=== PATIENT | male | born 1990 | race Caucasian/White ===

== ENCOUNTER 2020-11-19 19:00 | Inpatient (IN) | payer OTHER, MEDICAID ==
[~2020-11-19] VITALS: Ht 177.8 cm; Wt 64.6 kg
[2020-11-19 19:42] LABS: Urine Bacteria NONE SEEN /hpf (None Seen); Urine Blood 1+ /uL (Negative); Urine Specific Gravity 1.022 (1.001-1.035); Urine WBC 1 /hpf (0 - 3)
[2020-11-19 20:02] LABS: Amphetamine Screen, Urine NEGATIVE (NEGATIVE); Barbiturate Scree,Urine NEGATIVE (NEGATIVE); Benzodiazephine Screen, Urine NEGATIVE (NEGATIVE); Cannabinoid Screen, Urine NEGATIVE (NEGATIVE); Cocaine Screen, Urine NEGATIVE (NEGATIVE); Opiate Scree,Urine NEGATIVE (NEGATIVE); Phencyclidine Screen, Urine NEGATIVE (NEGATIVE)
[2020-11-19 20:30] LABS: Hematocrit 46.7 % (41.0-53.0); Mean Corpuscular Hemoglobin 30.3 pg (28.0-32.0); Mean Corpuscular Hgb Conc. 32.1 g/dL (32.0-36.0); Mean Corpuscular Volume 94.3 fL (80.0-100.0); Red Blood Cells 4.96 10^6/uL (4.5-5.90); Red Cell Distribution Width 12.6 % (11.8-14.3); White Blood Cell 27.5 10^3/uL (4.4-10.8)
[2020-11-19 20:39] LABS: Basophils % (manual) 0 (0.0-2.0); Blast Cells 0; Eosinophils % (manual) 0 (0-7); Metamyelocytes % 0; Myelocytes % 0; Promyelocytes % 0; Reactive Lymphocytes 0
[2020-11-19 20:49] LABS: Albumin 4.4 g/dL (3.4-5.0); Calcium 8.3 mg/dL (8.5-10.1); Magnesium 3.3 mg/dL (1.6-2.6); Potassium 5.5 mmol/L (3.5-5.1)
[2020-11-19 20:58] LABS: BUN/Creatinine Ratio 22.5; Bilirubin, Total 0.8 mg/dL (0.2-1.0); Total Protein 8.1 g/dL (6.4-8.2)
[2020-11-19 21:20] LABS: Band Neutrophils % (manual) 4; Lymphocytes % (manual) 9 (10.0-50.0); Monocytes % (manual) 4 (0-12)
[2020-11-19] MEDS ORDERED: SODIUM CHLORIDE 0.9% 1,000 ML IV ONE (21:30)
[2020-11-19] MEDS ORDERED: InsuLIN REG 1unit/0.01ml Soln (100units/ml) IV ONE (21:30)
[2020-11-19] MEDS ORDERED: SODIUM CHLORIDE 0.9% 3,000 ML IV ONE (21:30)
[2020-11-19] MEDS ORDERED: DEXTROSE (50%) 50ML SYRG IV PRN (22:00)
[2020-11-19] MEDS ORDERED: SODIUM BICARBONATE 8.4 % INJ 50ML VIAL IV ONE (22:00)
[2020-11-19] MEDS ORDERED: cefTRIAXone SOD 1,000 MG VL IM ONE (22:00)
[2020-11-19] MEDS ORDERED: ACETAMINOPHEN 325 MG TAB PO PRN (22:30)
[2020-11-19] MEDS ORDERED: ONDANSETRON HCL 4 MG/2 ML VIAL IV PRN (22:30)
[2020-11-19] MEDS ORDERED: DOCUSATE SOD 100 MG CAP PO PRN (22:30)
[2020-11-19] MEDS ORDERED: HYDROcodone-ACET 5/325MG TAB PO PRN (22:30)
[2020-11-19] MEDS: ACCU-CHEK COMFORT CURVE STRIP VI SCH (22:39)
[2020-11-19] MEDS: InsuLIN R (HUMAN) 100 UNITS in SODIUM CHL 0.9% 99 ML IV SCH (22:45)
[2020-11-19] MEDS ORDERED: IOHEXOL 300 MG/ML 100ML BOTTLE IJ ONE (23:55)
[2020-11-20] MEDS: ACCU-CHEK COMFORT CURVE STRIP VI SCH ×12 (00:30→20:00)
[2020-11-20 01:36] LABS: Albumin 3.2 g/dL (3.4-5.0); Anion Gap 21 (5-15); Blood Urea Nitrogen 40 mg/dL (7-18); Carbon Dioxide 11 mmol/L (21-32); Chloride 116 mmol/L (98-107); Magnesium 2.9 mg/dL (1.6-2.6); Potassium 3.3 mmol/L (3.5-5.1); Sodium 148 mmol/L (136-145)
[2020-11-20 01:38] LABS: BUN/Creatinine Ratio 22.5; GFR African American 59 mL/min; GFR Non-African American 49 mL/min
[2020-11-20 01:41] LABS: Alanine Aminotransferase 33 U/L (16-61); Alkaline Phosphatase 73 U/L (45-117); Aspartate Aminotransferase 24 U/L (15-37); Bilirubin, Total 0.5 mg/dL (0.2-1.0); Total Protein 5.9 g/dL (6.4-8.2)
[2020-11-20 01:59] LABS: Glucose 465 mg/dL (74-106)
[2020-11-20] MEDS ORDERED: SODIUM CHLORIDE 0.9% 1,000 ML IV SCH (02:00)
[2020-11-20] MEDS ORDERED: NITROGLYCERIN 0.4 MG SL TAB SL PRN (02:30)
[2020-11-20] MEDS ORDERED: CALCIUM CHL 100MG/ML 500 MG in D5W 5% 100 ML IV ONE (02:30)
[2020-11-20] MEDS ORDERED: POTASSIUM CHL 20 Meq TABLET PO ONE (02:30)
[2020-11-20] MEDS ORDERED: MORPHINE SULF INJ 2 MG/ML SYRINGE 1ML IV PRN (02:30)
[2020-11-20 02:32] LABS: Basophils # (auto) 0 10 ^3/uL (0-0.2); Eosinophils # (auto) 0 10 ^3/uL (0-0.8); Eosinophils % (auto) 0.2 % (0.0-7.0); Hematocrit 36.8 % (41.0-53.0); Lymphocytes # (auto) 0.8 10 ^3/uL (0.4-5.4); Lymphocytes % (auto) 4.3 % (10.0-50.0); Mean Corpuscular Hemoglobin 30.9 pg (28.0-32.0); Mean Corpuscular Hgb Conc. 35.4 g/dL (32.0-36.0); Mean Corpuscular Volume 87.3 fL (80.0-100.0); Monocytes # (auto) 2.8 10 ^3/uL (0-1.3); Monocytes % (auto) 15.2 % (0.0-12.0); Neutrophils # (auto) 14.5 10 ^3/uL (1.6-8.6); Neutrophils % (auto) 80.3 % (37.0-80.0); Red Blood Cells 4.22 10^6/uL (4.5-5.90); Red Cell Distribution Width 12.5 % (11.8-14.3); White Blood Cell 18.1 10^3/uL (4.4-10.8)
[2020-11-20 02:51] LABS: Cholesterol 178 mg/dL (< 200); HDL Cholesterol 29 mg/dL (40-59); Triglycerides 462 mg/dL (< 150)
[2020-11-20] MEDS ORDERED: CALCIUM CHLOR(10%) 100MG/ML 10ML SYRINGE IV ONE (04:12)
[2020-11-20 05:14] LABS: Basophils # (auto) 0 10 ^3/uL (0-0.2); Basophils % (auto) 0.1 % (0.0-2.0); Eosinophils # (auto) 0 10 ^3/uL (0-0.8); Hemoglobin 13.1 g/dL (13.5-17.5); Lymphocytes # (auto) 0.6 10 ^3/uL (0.4-5.4); Lymphocytes % (auto) 3.5 % (10.0-50.0); Mean Corpuscular Hemoglobin 30.4 pg (28.0-32.0); Mean Corpuscular Hgb Conc. 35.4 g/dL (32.0-36.0); Monocytes # (auto) 2.1 10 ^3/uL (0-1.3); Monocytes % (auto) 12.3 % (0.0-12.0); Neutrophils # (auto) 14.1 10 ^3/uL (1.6-8.6); Neutrophils % (auto) 84.1 % (37.0-80.0); Red Cell Distribution Width 12.1 % (11.8-14.3); White Blood Cell 16.7 10^3/uL (4.4-10.8)
[2020-11-20 05:16] LABS: Albumin 3.5 g/dL (3.4-5.0); BUN/Creatinine Ratio 19.2; Calcium 8.5 mg/dL (8.5-10.1); Magnesium 2.5 mg/dL (1.6-2.6); Potassium 3.4 mmol/L (3.5-5.1)
[2020-11-20 05:18] LABS: Bilirubin, Total 0.6 mg/dL (0.2-1.0); Total Protein 6.6 g/dL (6.4-8.2)
[2020-11-20] MEDS ORDERED: cefTRIAXone 1GM/50ML D5W 50 ML IV SCH (09:00)
[2020-11-20] MEDS: INSULIN LANTUS (GLARGINE) 1 /0.01ml (100units/ml) SC SCH ×2 (09:54→22:45)
[2020-11-20] MEDS: InsuLIN R (HUMAN) 100 UNITS in SODIUM CHL 0.9% 99 ML IV SCH (09:54)
[2020-11-20] MEDS ORDERED: ZINC SULFATE 220mg CAP or TAB PO SCH (10:00)
[2020-11-20] MEDS ORDERED: ASCORBIC ACID 500 MG TAB PO SCH (10:00)
[2020-11-20] MEDS ORDERED: MULTIPLE VITAMIN TAB PO SCH (10:00)
[2020-11-20] MEDS: HEPARIN SODIUM (PORCINE) 5000 UNITS/ML 1ML VIAL SC SCH ×2 (10:14→22:45)
[2020-11-20] MEDS: SOD CHL 0.45% 1,000 ML IV SCH ×5 (11:02→23:24)
[2020-11-20 11:19] LABS: Albumin 3.4 g/dL (3.4-5.0); Calcium 8.5 mg/dL (8.5-10.1); Magnesium 2.6 mg/dL (1.6-2.6); Potassium 4.1 mmol/L (3.5-5.1)
[2020-11-20 11:24] LABS: BUN/Creatinine Ratio 23.1; Bilirubin, Total 0.6 mg/dL (0.2-1.0); Phosphorus 1.6 mg/dL (2.5-4.90); Total Protein 6.5 g/dL (6.4-8.2)
[2020-11-20] MEDS ORDERED: metroNIDAZOLE 500MG/100ML 100 ML IV SCH (14:00)
[2020-11-20 15:41] LABS: Calcium 8.6 mg/dL (8.5-10.1)
[2020-11-20] MEDS ORDERED: DEXTROSE (50%) 50ML SYRG IV PRN (16:30)
[2020-11-20] MEDS: PIPERACILLIN-TAZOB 3.375GM 100 ML IV SCH ×2 (18:26→22:30)
[2020-11-20] MEDS: InsuLIN REG 1unit/0.01ml Soln (100units/ml) SC SCH (21:30)
[2020-11-20 21:57] LABS: BUN/Creatinine Ratio 21.4; Calcium 9.1 mg/dL (8.5-10.1); Potassium 4.1 mmol/L (3.5-5.1)
[2020-11-20] MEDS: PANTOPRAZOLE 40 MG/10 ML VIAL INJ IV SCH (22:45)
[2020-11-21] VITALS (17 sets, daily range): BP systolic 91–110; BP diastolic 55–71
[2020-11-21] MEDS: PIPERACILLIN-TAZOB 3.375GM 100 ML IV SCH ×3 (03:13→18:42)
[2020-11-21 03:50] LABS: Potassium 3.6 mmol/L (3.5-5.1)
[2020-11-21 03:52] LABS: BUN/Creatinine Ratio 19.8
[2020-11-21] MEDS: ACCU-CHEK COMFORT CURVE STRIP VI SCH ×6 (04:00→20:10)
[2020-11-21] MEDS: InsuLIN REG 1unit/0.01ml Soln (100units/ml) SC SCH ×6 (04:00→20:43)
[2020-11-21] MEDS: INSULIN LANTUS (GLARGINE) 1 /0.01ml (100units/ml) SC SCH (07:00)
[2020-11-21] MEDS: SOD CHL 0.45% 1,000 ML IV SCH (07:37)
[2020-11-21] MEDS ORDERED: INSU1INJ19 SC (08:09)
[2020-11-21] MEDS ORDERED: INSU100I44 SC (08:09)
[2020-11-21] MEDS ORDERED: POTASSIUM PHOSPHATE 22 MEQ in SODIUM CHL 0.9% 100 ML IV ONE (08:15)
[2020-11-21 08:27] LABS: Basophils # (auto) 0 10 ^3/uL (0-0.2); Basophils % (auto) 0.2 % (0.0-2.0); Eosinophils # (auto) 0 10 ^3/uL (0-0.8); Hematocrit 38.4 % (41.0-53.0); Hemoglobin 13.5 g/dL (13.5-17.5); Lymphocytes # (auto) 0.8 10 ^3/uL (0.4-5.4); Lymphocytes % (auto) 6.5 % (10.0-50.0); Mean Corpuscular Hemoglobin 30.6 pg (28.0-32.0); Mean Corpuscular Hgb Conc. 35.2 g/dL (32.0-36.0); Mean Corpuscular Volume 86.9 fL (80.0-100.0); Monocytes # (auto) 1.2 10 ^3/uL (0-1.3); Monocytes % (auto) 10.3 % (0.0-12.0); Neutrophils # (auto) 9.9 10 ^3/uL (1.6-8.6); Red Blood Cells 4.42 10^6/uL (4.5-5.90); Red Cell Distribution Width 12.8 % (11.8-14.3)
[2020-11-21 08:41] LABS: Albumin 3.5 g/dL (3.4-5.0); Magnesium 2.6 mg/dL (1.6-2.6); Potassium 3.5 mmol/L (3.5-5.1)
[2020-11-21 08:43] LABS: BUN/Creatinine Ratio 18.3; Bilirubin, Total 1.2 mg/dL (0.2-1.0); Phosphorus 1.9 mg/dL (2.5-4.90); Total Protein 6.8 g/dL (6.4-8.2)
[2020-11-21] MEDS: PANTOPRAZOLE 40 MG/10 ML VIAL INJ IV SCH ×2 (09:57→22:25)
[2020-11-21] MEDS: D5W/SOD CHL 0.2% 1,000 ML IV SCH ×2 (09:57→16:15)
[2020-11-21] MEDS: HEPARIN SODIUM (PORCINE) 5000 UNITS/ML 1ML VIAL SC SCH ×2 (10:45→22:00)
[2020-11-21 11:07] LABS: Urine Amorphous Crystal MANY /hpf (None Seen); Urine Bacteria NONE SEEN /hpf (None Seen); Urine Blood 2+ /uL (Negative); Urine Specific Gravity 1.031 (1.001-1.035); Urine WBC 10 /hpf (0 - 3)
[2020-11-21 11:20] LABS: INR 1.02 (0.9-1.15); Partial Thromboplastin Time 22.8 sec (23.0-31.2)
[2020-11-21] MEDS ORDERED: GASTROGRAFIN 120 ML SOL ONE (13:26)
[2020-11-21] MEDS ORDERED: GASTROGRAFIN 30 ML SOL ONE (13:46)
[2020-11-22] VITALS (19 sets, daily range): BP systolic 97–117; BP diastolic 61–78
[2020-11-22] MEDS: D5W/SOD CHL 0.2% 1,000 ML IV SCH ×2 (00:15→08:15)
[2020-11-22] MEDS: ACCU-CHEK COMFORT CURVE STRIP VI SCH ×5 (04:16→18:15)
[2020-11-22] MEDS: InsuLIN REG 1unit/0.01ml Soln (100units/ml) SC SCH ×5 (04:17→18:15)
[2020-11-22] MEDS: PIPERACILLIN-TAZOB 3.375GM 100 ML IV SCH ×2 (06:00)
[2020-11-22 10:17] LABS: Basophils # (auto) 0 10 ^3/uL (0-0.2); Basophils % (auto) 0.3 % (0.0-2.0); Eosinophils # (auto) 0 10 ^3/uL (0-0.8); Eosinophils % (auto) 0.2 % (0.0-7.0); Hematocrit 38.8 % (41.0-53.0); Hemoglobin 13.6 g/dL (13.5-17.5); Lymphocytes # (auto) 0.9 10 ^3/uL (0.4-5.4); Lymphocytes % (auto) 14.7 % (10.0-50.0); Mean Corpuscular Hemoglobin 30.8 pg (28.0-32.0); Monocytes # (auto) 0.6 10 ^3/uL (0-1.3); Monocytes % (auto) 9.5 % (0.0-12.0); Neutrophils # (auto) 4.7 10 ^3/uL (1.6-8.6); Neutrophils % (auto) 75.3 % (37.0-80.0); Red Blood Cells 4.41 10^6/uL (4.5-5.90); Red Cell Distribution Width 12.5 % (11.8-14.3); White Blood Cell 6.2 10^3/uL (4.4-10.8)
[2020-11-22] MEDS: PANTOPRAZOLE 40 MG/10 ML VIAL INJ IV SCH (10:22)
[2020-11-22 10:37] LABS: Potassium 3.1 mmol/L (3.5-5.1)
[2020-11-22 10:47] LABS: Albumin 3.1 g/dL (3.4-5.0); BUN/Creatinine Ratio 27.4; Bilirubin, Total 1.4 mg/dL (0.2-1.0); Calcium 8.7 mg/dL (8.5-10.1); Total Protein 6.6 g/dL (6.4-8.2)
[2020-11-22] MEDS ORDERED: DEXTROSE (50%) 50ML SYRG IV PRN (11:45)
[2020-11-22] MEDS ORDERED: POTASSIUM CHLORIDE 20 MEQ in D5W 5% 1,000 ML IV SCH (11:45)
[2020-11-22] MEDS ORDERED: POTASSIUM CHLORIDE 40 MEQ, LIDOCAINE 1% (LOCAL ANESTH.) 4 ML in SODIUM CHL 0.9% 250 ML IV ONE (11:45)
[2020-11-22] MEDS ORDERED: LIDOCAINE 1% (LOCAL ANESTH.) PF 5ml SDV ID ONE (12:00)
[2020-11-22] MEDS ORDERED: GASTROGRAFIN 120 ML SOL ONE (13:46)
[2020-11-22] MEDS: FREE WATER PO SCH ×2 (18:14→22:08)
[2020-11-22] MEDS: SODIUM CHLOR 0.9% PF (SALINE LOCK) 10ML VIAL/SYR IV SCH (22:02)
[2020-11-22] MEDS: PANTOPRAZOLE 40 MG TAB PO SCH (22:08)
[2020-11-23] MEDS: ACCU-CHEK COMFORT CURVE STRIP VI SCH ×4 (00:32→17:19)
[2020-11-23] MEDS: InsuLIN REG 1unit/0.01ml Soln (100units/ml) SC SCH ×4 (00:35→17:19)
[2020-11-23] MEDS: FREE WATER PO SCH ×6 (02:00→22:24)
[2020-11-23 08:31] LABS: Basophils # (auto) 0 10 ^3/uL (0-0.2); Basophils % (auto) 0.4 % (0.0-2.0); Eosinophils # (auto) 0 10 ^3/uL (0-0.8); Eosinophils % (auto) 0.9 % (0.0-7.0); Hematocrit 34.3 % (41.0-53.0); Hemoglobin 12.4 g/dL (13.5-17.5); Lymphocytes % (auto) 17.9 % (10.0-50.0); Mean Corpuscular Hemoglobin 31.7 pg (28.0-32.0); Mean Corpuscular Hgb Conc. 36.1 g/dL (32.0-36.0); Mean Corpuscular Volume 87.7 fL (80.0-100.0); Monocytes # (auto) 0.4 10 ^3/uL (0-1.3); Monocytes % (auto) 7.6 % (0.0-12.0); Neutrophils % (auto) 73.2 % (37.0-80.0); Red Blood Cells 3.91 10^6/uL (4.5-5.90); Red Cell Distribution Width 12.2 % (11.8-14.3); White Blood Cell 5.5 10^3/uL (4.4-10.8)
[2020-11-23 09:00] LABS: Calcium 8.3 mg/dL (8.5-10.1); Potassium 3.2 mmol/L (3.5-5.1)
[2020-11-23 09:03] LABS: BUN/Creatinine Ratio 44.1; Total Protein 6.1 g/dL (6.4-8.2)
[2020-11-23 09:15] VITALS: BP 106/70
[2020-11-23] MEDS ORDERED: levoFLOXacin 500MG 100 ML IV SCH (10:00)
[2020-11-23] MEDS: SODIUM CHLOR 0.9% PF (SALINE LOCK) 10ML VIAL/SYR IV SCH ×2 (10:00→22:24)
[2020-11-23] MEDS: PANTOPRAZOLE 40 MG TAB PO SCH ×2 (10:00→22:24)
[2020-11-23] MEDS ORDERED: INSULIN LANTUS (GLARGINE) 1 /0.01ml (100units/ml) SC SCH (10:00)
[2020-11-23] MEDS ORDERED: PANT40T PO (11:36)
[2020-11-23 13:26] VITALS: BP 114/74
[2020-11-23 16:52] VITALS: BP_SYST 103; BP_SYST 96; BP_DIAS 60; BP_DIAS 61
[2020-11-23 22:00] VITALS: BP 103/70
[2020-11-24] MEDS: InsuLIN REG 1unit/0.01ml Soln (100units/ml) SC SCH ×4 (00:50→17:59)
[2020-11-24] MEDS: ACCU-CHEK COMFORT CURVE STRIP VI SCH ×4 (00:50→17:59)
[2020-11-24] MEDS: FREE WATER PO SCH ×5 (02:00→17:58)
[2020-11-24 05:00] VITALS: BP 102/67
[2020-11-24 09:00] VITALS: BP 122/78
[2020-11-24] MEDS ORDERED: INSULIN LANTUS (GLARGINE) 1 /0.01ml (100units/ml) SC SCH ×2 (10:00)
[2020-11-24] MEDS ORDERED: POTASSIUM CHL 20 Meq TABLET PO ONE (10:15)
[2020-11-24] MEDS: PANTOPRAZOLE 40 MG TAB PO SCH (10:43)
[2020-11-24] MEDS: SODIUM CHLOR 0.9% PF (SALINE LOCK) 10ML VIAL/SYR IV SCH (10:43)
[2020-11-24 11:55] VITALS: BP 122/78
[2020-11-24 12:49] VITALS: BP 116/81
[2020-11-24 17:00] VITALS: BP 124/81
== END 2020-11-24 19:57 | disposition home or self-care (01) | DRG 871 ==
LOC: EDBD 19:00 → EDUNIT# 19:00 → ER 19:00 → OVERFLOW 11-20 02:35 → DOU IN ICU 11-21 06:30 → CENTRAL 11-22 17:57 → TELE-CENTR 11-22 18:41 → CENTRAL 11-23 16:14
PROVIDERS: ADMIT Nurse Practitioner Family; ATTEND Internal Medicine
PROC: 02HV33Z Insertion of Infusion Device into Superior Vena Cava, Percutaneous Approach (ICD-10-PCS; principal; 2020-11-24)
PROC: B548ZZA Ultrasonography of Superior Vena Cava, Guidance (ICD-10-PCS; 2020-11-24)
DX: A41.9 Sepsis, unspecified organism (principal); E10.10 Type 1 diabetes mellitus with ketoacidosis without coma; G93.41 Metabolic encephalopathy; K85.90 Acute pancreatitis without necrosis or infection, unspecified; K22.6 Gastro-esophageal laceration-hemorrhage syndrome; R64 Cachexia; Z68.1 Body mass index [BMI] 19.9 or less, adult; E87.0 Hyperosmolality and hypernatremia; Z20.822 Contact with and (suspected) exposure to COVID-19; E86.0 Dehydration; J98.2 Interstitial emphysema; K20.90 Esophagitis, unspecified without bleeding; E87.6 Hypokalemia; N28.9 Disorder of kidney and ureter, unspecified; K76.0 Fatty (change of) liver, not elsewhere classified; Z91.14 Patient's other noncompliance with medication regimen; Z59.0 Homelessness; Z79.4 Long term (current) use of insulin; Z79.899 Other long term (current) drug therapy
CPT/HCPCS: 36415; 36569; 36600; 70450; 71045; 71250; 71260; 74176; 74177; 74220; 80048; 80053; 80061; 80307; 80320; 81001; 82010; 82805; 82962; 83036; 83525; 83690; 83735; 84100; 85007; 85025; 85027; 85610; 85730; 87040; 87081; 87426; 96361; 96365; 99291; C9113; G0378; J0696; J1815; J2001; J2543; J7042; J7060

== ENCOUNTER 2021-05-23 15:00 | Inpatient (IN) | payer OTHER, MEDICAID ==
[~2021-05-23] VITALS: Ht 180.3 cm; Wt 54.4 kg
[~2021-05-23 15:00] MED LIST: INSU100I44 SC; INSU1INJ19 SC; PANT40T PO
[2021-05-23] MEDS ORDERED: SODIUM CHLORIDE 0.9% 1,000 ML IV ONE ×2 (15:15)
[2021-05-23 16:00] LABS: Basophils # (auto) 0.1 10 ^3/uL (0-0.2); Basophils % (auto) 0.3 % (0.0-2.0); Eosinophils # (auto) 0 10 ^3/uL (0-0.8); Eosinophils % (auto) 0.1 % (0.0-7.0); Hematocrit 49.2 % (41.0-53.0); Hemoglobin 15.7 g/dL (13.5-17.5); Lymphocytes # (auto) 1.8 10 ^3/uL (0.4-5.4); Lymphocytes % (auto) 9.6 % (10.0-50.0); Mean Corpuscular Hemoglobin 29.6 pg (28.0-32.0); Mean Corpuscular Hgb Conc. 31.9 g/dL (32.0-36.0); Mean Corpuscular Volume 92.8 fL (80.0-100.0); Monocytes % (auto) 5.2 % (0.0-12.0); Neutrophils # (auto) 16.1 10 ^3/uL (1.6-8.6); Neutrophils % (auto) 84.8 % (37.0-80.0); Nucleated Red Blood Cells % 0.1 %; Red Cell Distribution Width 13.7 % (11.8-14.3)
[2021-05-23] MEDS ORDERED: InsuLIN R (HUMAN) 100 UNITS in SODIUM CHL 0.9% 99 ML IV SCH (16:00)
[2021-05-23] MEDS ORDERED: INSULIN LANTUS (GLARGINE) 1 /0.01ml (100units/ml) SC ONE (16:00)
[2021-05-23] MEDS ORDERED: DEXTROSE (50%) 50ML SYRG IV PRN ×2 (16:00→21:15)
[2021-05-23 16:02] LABS: Albumin 4.6 g/dL (3.4-5.0); BUN/Creatinine Ratio 11.8; Calcium 9.4 mg/dL (8.5-10.1); Potassium 5.3 mmol/L (3.5-5.1)
[2021-05-23 16:09] LABS: Bilirubin, Total 0.6 mg/dL (0.2-1.0); Total Protein 8.1 g/dL (6.4-8.2)
[2021-05-23] MEDS ORDERED: SODIUM BICARBONATE 8.4 % INJ 50ML VIAL IV ONE (18:00)
[2021-05-23] MEDS: ACCU-CHEK COMFORT CURVE STRIP VI SCH ×6 (18:24→23:54)
[2021-05-23 19:36] LABS: Urine Bacteria NONE SEEN /hpf (None Seen); Urine Blood Negative /uL (Negative); Urine Mucus FEW (None Seen); Urine Specific Gravity 1.024 (1.001-1.035); Urine WBC 1 /hpf (0 - 3)
[2021-05-23] MEDS ORDERED: SODIUM CHLORIDE 0.9% 500 ML IV ONE (21:15)
[2021-05-23] MEDS ORDERED: ONDANSETRON HCL 4 MG/2 ML VIAL IV PRN (21:15)
[2021-05-23] MEDS ORDERED: NITROGLYCERIN 0.4 MG SL TAB SL PRN (21:15)
[2021-05-23] MEDS ORDERED: MORPHINE SULFATE INJECTION 2 MG/ML SYRG IV PRN (21:15)
[2021-05-23] MEDS: SODIUM CHLORIDE 0.9% 1,000 ML IV SCH (23:10)
[2021-05-23 23:54] LABS: BUN/Creatinine Ratio 15.7; Calcium 7.5 mg/dL (8.5-10.1); Potassium 4.2 mmol/L (3.5-5.1)
[2021-05-24] MEDS: ACCU-CHEK COMFORT CURVE STRIP VI SCH ×6 (01:24→17:05)
[2021-05-24 03:48] LABS: Basophils # (auto) 0 10 ^3/uL (0-0.2); Basophils % (auto) 0.1 % (0.0-2.0); Eosinophils # (auto) 0 10 ^3/uL (0-0.8); Hematocrit 36.2 % (41.0-53.0); Hemoglobin 12.3 g/dL (13.5-17.5); Lymphocytes # (auto) 0.9 10 ^3/uL (0.4-5.4); Lymphocytes % (auto) 5.9 % (10.0-50.0); Mean Corpuscular Hemoglobin 29.9 pg (28.0-32.0); Mean Corpuscular Hgb Conc. 33.9 g/dL (32.0-36.0); Mean Corpuscular Volume 88.2 fL (80.0-100.0); Monocytes # (auto) 1.5 10 ^3/uL (0-1.3); Monocytes % (auto) 9.6 % (0.0-12.0); Neutrophils % (auto) 84.4 % (37.0-80.0); Nucleated Red Blood Cells % 0.1 %; Red Blood Cells 4.11 10^6/uL (4.5-5.90); Red Cell Distribution Width 13.7 % (11.8-14.3); White Blood Cell 15.4 10^3/uL (4.4-10.8)
[2021-05-24 04:01] LABS: Albumin 3.1 g/dL (3.4-5.0); Calcium 7.9 mg/dL (8.5-10.1); Potassium 4.5 mmol/L (3.5-5.1)
[2021-05-24 04:03] LABS: Bilirubin, Total 0.4 mg/dL (0.2-1.0); Total Protein 5.8 g/dL (6.4-8.2)
[2021-05-24] MEDS: SODIUM CHLORIDE 0.9% 1,000 ML IV SCH (05:15)
[2021-05-24] MEDS ORDERED: DEXTROSE (50%) 50ML SYRG IV PRN (06:15)
[2021-05-24] MEDS ORDERED: InsuLIN REG 1unit/0.01ml Soln (100units/ml) SC SCH (08:00)
[2021-05-24] MEDS ORDERED: ACCU-CHEK COMFORT CURVE STRIP VI SCH (08:00)
[2021-05-24] MEDS ORDERED: INSLISPI SC (09:43)
[2021-05-24] MEDS ORDERED: INSLANTI SC (09:43)
[2021-05-24] MEDS ORDERED: INSULIN LANTUS (GLARGINE) 1 /0.01ml (100units/ml) SC SCH ×3 (10:00→22:00)
[2021-05-24] MEDS: PANTOPRAZOLE 40 MG/10 ML VIAL INJ IV SCH (10:29)
[2021-05-24] MEDS ORDERED: SOD CHL 0.45% 1,000 ML IV SCH (11:45)
[2021-05-24] MEDS: InsuLIN REG 1unit/0.01ml Soln (100units/ml) SC SCH ×2 (11:53→17:23)
[2021-05-24 12:02] LABS: BUN/Creatinine Ratio 14.4; Calcium 8.2 mg/dL (8.5-10.1); Potassium 4.1 mmol/L (3.5-5.1)
[2021-05-24 12:13] VITALS: BP 104/67
[2021-05-24 16:04] LABS: BUN/Creatinine Ratio 15.2; Calcium 7.8 mg/dL (8.5-10.1)
[2021-05-24 16:53] VITALS: BP 98/54
[2021-05-24 22:00] VITALS: BP 108/51
[2021-05-25] MEDS: InsuLIN REG 1unit/0.01ml Soln (100units/ml) SC SCH ×3 (00:04→12:24)
[2021-05-25 06:00] VITALS: BP 91/57
[2021-05-25] MEDS: ACCU-CHEK COMFORT CURVE STRIP VI SCH ×3 (07:35→12:10)
[2021-05-25 07:36] LABS: Basophils # (auto) 0 10 ^3/uL (0-0.2); Basophils % (auto) 0.2 % (0.0-2.0); Eosinophils # (auto) 0 10 ^3/uL (0-0.8); Eosinophils % (auto) 0.4 % (0.0-7.0); Hematocrit 36.4 % (41.0-53.0); Hemoglobin 12.6 g/dL (13.5-17.5); Lymphocytes # (auto) 1.6 10 ^3/uL (0.4-5.4); Lymphocytes % (auto) 22.4 % (10.0-50.0); Mean Corpuscular Hemoglobin 30.6 pg (28.0-32.0); Mean Corpuscular Hgb Conc. 34.6 g/dL (32.0-36.0); Mean Corpuscular Volume 88.4 fL (80.0-100.0); Monocytes # (auto) 0.6 10 ^3/uL (0-1.3); Nucleated Red Blood Cells % 0.1 %; Red Blood Cells 4.12 10^6/uL (4.5-5.90); Red Cell Distribution Width 14.1 % (11.8-14.3); White Blood Cell 7.2 10^3/uL (4.4-10.8)
[2021-05-25 07:53] LABS: Potassium 3.2 mmol/L (3.5-5.1)
[2021-05-25 08:06] LABS: BUN/Creatinine Ratio 19.4; Calcium 8.3 mg/dL (8.5-10.1)
[2021-05-25 08:55] VITALS: BP 95/57
[2021-05-25] MEDS: PANTOPRAZOLE 40 MG/10 ML VIAL INJ IV SCH (09:25)
[2021-05-25] MEDS ORDERED: POTASSIUM CHL 20 Meq TABLET PO ONE (10:30)
[2021-05-25 12:43] VITALS: BP 113/62
[2021-05-25 14:23] VITALS: BP 113/62
[2021-05-25 16:28] VITALS: BP 117/70
== END 2021-05-25 17:32 | disposition home or self-care (01) | DRG 637 ==
LOC: ER 15:00 → EDBD 15:00 → TELE 21:24 → TELE-WESTW 05-24 09:10 → WEST WING 05-24 11:44
PROVIDERS: ADMIT Nurse Practitioner; ATTEND Internal Medicine
DX: E10.10 Type 1 diabetes mellitus with ketoacidosis without coma (principal); G93.41 Metabolic encephalopathy; K85.90 Acute pancreatitis without necrosis or infection, unspecified; N17.9 Acute kidney failure, unspecified; R65.10 Systemic inflammatory response syndrome (SIRS) of non-infectious origin without acute organ dysfunction; E87.0 Hyperosmolality and hypernatremia; E86.0 Dehydration; Z20.822 Contact with and (suspected) exposure to COVID-19; N47.1 Phimosis; E87.5 Hyperkalemia; Z59.00 Homelessness unspecified; Z79.4 Long term (current) use of insulin; Z91.11 Patient's noncompliance with dietary regimen
CPT/HCPCS: 36415; 36600; 80048; 80053; 81001; 82010; 82805; 82962; 83036; 85025; 87426; 96361; 96374; 99291; C9113; G0378; J1815; J2405

== ENCOUNTER 2021-08-08 16:03 | Inpatient (IN) | payer OTHER, MEDICAID ==
[~2021-08-08] VITALS: Ht 177.8 cm; Wt 57.7 kg
[~2021-08-08 16:03] MED LIST changes: +INSLANTI SC; +INSLISPI SC; -INSU100I44 SC; -INSU1INJ19 SC
[2021-08-08] MEDS ORDERED: SODIUM CHLORIDE 0.9% 1,000 ML IVB ONE (16:15)
[2021-08-08] MEDS ORDERED: INSULIN LANTUS (GLARGINE) 1 /0.01ml (100units/ml) SC ONE (16:15)
[2021-08-08] MEDS ORDERED: DEXTROSE (50%) 50ML SYRG IV PRN ×2 (16:15→21:30)
[2021-08-08] MEDS ORDERED: ONDANSETRON HCL 4 MG/2 ML VIAL IV ONE (16:15)
[2021-08-08] MEDS: InsuLIN R (HUMAN) 100 UNITS in SODIUM CHL 0.9% 99 ML IV SCH ×3 (17:33→21:07)
[2021-08-08] MEDS: ACCU-CHEK COMFORT CURVE STRIP VI SCH ×6 (17:34→22:35)
[2021-08-08 18:16] LABS: Basophils # (auto) 0 10 ^3/uL (0-0.2); Basophils % (auto) 0.2 % (0.0-2.0); Eosinophils # (auto) 0 10 ^3/uL (0-0.8); Hematocrit 44.9 % (41.0-53.0); Hemoglobin 14.8 g/dL (13.5-17.5); Lymphocytes # (auto) 0.4 10 ^3/uL (0.4-5.4); Lymphocytes % (auto) 2.9 % (10.0-50.0); Mean Corpuscular Hemoglobin 31.4 pg (28.0-32.0); Mean Corpuscular Volume 95.2 fL (80.0-100.0); Monocytes # (auto) 0.9 10 ^3/uL (0-1.3); Monocytes % (auto) 7.4 % (0.0-12.0); Neutrophils # (auto) 11.3 10 ^3/uL (1.6-8.6); Neutrophils % (auto) 89.5 % (37.0-80.0); Nucleated Red Blood Cells % 0.1 %; Red Blood Cells 4.72 10^6/uL (4.5-5.90); Red Cell Distribution Width 13.2 % (11.8-14.3); White Blood Cell 12.6 10^3/uL (4.4-10.8)
[2021-08-08 18:25] LABS: Albumin 3.8 g/dL (3.4-5.0); BUN/Creatinine Ratio 10.4; Calcium 8.9 mg/dL (8.5-10.1); Magnesium 2.2 mg/dL (1.6-2.6)
[2021-08-08 18:28] LABS: Bilirubin, Total 0.5 mg/dL (0.2-1.0); Total Protein 7.7 g/dL (6.4-8.2)
[2021-08-08 19:04] LABS: Urine Bacteria FEW /hpf (None Seen); Urine Blood TRACE /uL (Negative); Urine Hyaline Cast FEW /lpf (0 - 2); Urine Specific Gravity 1.026 (1.001-1.035); Urine WBC 1 /hpf (0 - 3)
[2021-08-08] MEDS ORDERED: IOHEXOL 300 MG/ML 100ML BOTTLE IJ ONE (19:51)
[2021-08-08] MEDS ORDERED: NITROGLYCERIN 0.4 MG SL TAB SL PRN (21:30)
[2021-08-08] MEDS ORDERED: MORPHINE SULFATE INJECTION 2 MG/ML SYRG IV PRN (21:30)
[2021-08-08] MEDS ORDERED: ONDANSETRON HCL 4 MG/2 ML VIAL IV PRN (21:30)
[2021-08-08 23:21] LABS: BUN/Creatinine Ratio 11.3; Calcium 9.2 mg/dL (8.5-10.1)
[2021-08-09] MEDS: ACCU-CHEK COMFORT CURVE STRIP VI SCH ×19 (00:10→20:11)
[2021-08-09] MEDS: InsuLIN R (HUMAN) 100 UNITS in SODIUM CHL 0.9% 99 ML IV SCH ×2 (00:11→01:52)
[2021-08-09] MEDS ORDERED: SODIUM CHLORIDE 0.9% 1,000 ML IV SCH (01:30)
[2021-08-09] MEDS: SODIUM CHLORIDE 0.9% 1,000 ML IV SCH ×4 (03:44→23:30)
[2021-08-09 03:47] LABS: BUN/Creatinine Ratio 12.1; Calcium 9.5 mg/dL (8.5-10.1); Potassium 4.5 mmol/L (3.5-5.1)
[2021-08-09 09:57] LABS: BUN/Creatinine Ratio 11.6; Calcium 8.9 mg/dL (8.5-10.1); Potassium 3.9 mmol/L (3.5-5.1)
[2021-08-09] MEDS: INSULIN LANTUS (GLARGINE) 1 /0.01ml (100units/ml) SC SCH (10:57)
[2021-08-09] MEDS ORDERED: DEXTROSE (50%) 50ML SYRG IV PRN (11:45)
[2021-08-09 16:10] LABS: Anion Gap 12 (5-15); BUN/Creatinine Ratio 12.7; Blood Urea Nitrogen 14 mg/dL (7-18); Calcium 8.4 mg/dL (8.5-10.1); Carbon Dioxide 14 mmol/L (21-32); Chloride 120 mmol/L (98-107); GFR African American 102 mL/min; GFR Non-African American 84 mL/min; Glucose 287 mg/dL (74-106); Potassium 4.1 mmol/L (3.5-5.1); Sodium 146 mmol/L (136-145)
[2021-08-09 17:00] VITALS: BP_SYST 112; BP_SYST 116; BP_DIAS 68; BP_DIAS 77
[2021-08-09] MEDS: InsuLIN REG 1unit/0.01ml Soln (100units/ml) SC SCH ×2 (18:51→20:11)
[2021-08-09 22:00] VITALS: BP 107/57
[2021-08-10] MEDS: ACCU-CHEK COMFORT CURVE STRIP VI SCH ×6 (00:04→17:00)
[2021-08-10] MEDS: InsuLIN REG 1unit/0.01ml Soln (100units/ml) SC SCH ×5 (04:00→17:00)
[2021-08-10] MEDS: SODIUM CHLORIDE 0.9% 1,000 ML IV SCH (04:41)
[2021-08-10 05:00] VITALS: BP 102/66
[2021-08-10 07:03] LABS: Basophils # (auto) 0 10 ^3/uL (0-0.2); Basophils % (auto) 0.3 % (0.0-2.0); Eosinophils # (auto) 0 10 ^3/uL (0-0.8); Eosinophils % (auto) 0.7 % (0.0-7.0); Hemoglobin 11.7 g/dL (13.5-17.5); Lymphocytes # (auto) 0.7 10 ^3/uL (0.4-5.4); Lymphocytes % (auto) 14.2 % (10.0-50.0); Mean Corpuscular Hemoglobin 32.4 pg (28.0-32.0); Mean Corpuscular Hgb Conc. 35.6 g/dL (32.0-36.0); Mean Corpuscular Volume 90.9 fL (80.0-100.0); Monocytes # (auto) 0.5 10 ^3/uL (0-1.3); Neutrophils # (auto) 3.5 10 ^3/uL (1.6-8.6); Neutrophils % (auto) 73.8 % (37.0-80.0); Nucleated Red Blood Cells % 0.1 %; Red Blood Cells 3.63 10^6/uL (4.5-5.90); Red Cell Distribution Width 13.1 % (11.8-14.3); White Blood Cell 4.8 10^3/uL (4.4-10.8)
[2021-08-10 09:01] VITALS: BP 102/64
[2021-08-10] MEDS ORDERED: INSLISPI SC (10:28)
[2021-08-10] MEDS ORDERED: INSLANTI SC (10:28)
[2021-08-10 10:51] LABS: BUN/Creatinine Ratio 16.5; Calcium 8.1 mg/dL (8.5-10.1); Potassium 3.2 mmol/L (3.5-5.1)
[2021-08-10] MEDS: INSULIN LANTUS (GLARGINE) 1 /0.01ml (100units/ml) SC SCH (11:03)
[2021-08-10] MEDS ORDERED: POTASSIUM EFFERVESENT TAB 25 MEQ GT ONE (11:30)
[2021-08-10 13:00] VITALS: BP 107/68
[2021-08-10 17:00] VITALS: BP 109/75
== END 2021-08-10 20:30 | disposition home or self-care (01) | DRG 639 ==
LOC: EDBD 16:03 → ER 16:03 → TELE 21:26 → WEST WING 08-09 13:21
PROVIDERS: ADMIT Nurse Practitioner; ATTEND Internal Medicine Pulmonary Disease
DX: E10.10 Type 1 diabetes mellitus with ketoacidosis without coma (principal); E86.0 Dehydration; Z20.822 Contact with and (suspected) exposure to COVID-19; Z59.00 Homelessness unspecified; Z91.19 Patient's noncompliance with other medical treatment and regimen
CPT/HCPCS: 36415; 36600; 71045; 74177; 80048; 80053; 81001; 82010; 82805; 82962; 83036; 83605; 83735; 85025; 87040; 93005; 96361; 96374; 99291; G0378; J1815; J2405